=== PATIENT | female | born 1995 | race Asian ===

== ENCOUNTER 2025-08-10 09:53 | Outpatient (REF) | payer SELFPAY ==
--- NOTE | ~2025-08-10 | XR_ITS ---
EXAMINATION: XR NASAL BONES CLINICAL INFORMATION: pt w hx of deviated nasal septum and difficulty breathing COMPARISON: None available. TECHNIQUE: 3 views of the nasal bones were obtained. FINDINGS: No fracture is evident. Bony septum deviates toward the right. Paranasal sinuses are grossly clear. XR/XR nasal bones min 3V IMPRESSION: Bony nasal septum deviates toward the right. Electronically signed by: Sher King MD 08/10/2025 01:20 PM EDT RP
[2025-08-10 11:28] LABS: MANUAL DIFF FLAG NO
[2025-08-10 11:47] LABS: Hematocrit 40.9 % (37.0-47.0); Hemoglobin 13.9 g/dl (12.0-16.0); Imm Gran Abs Auto 0.02 X10*3/uL (0.00-0.03); Imm Gran Pct Auto 0.4 % (0.0-0.4); Lymphocytes Absolute Auto 2.1 X10*3/uL (1.2-4.9); Mean Corpuscular HGB Conc 34.0 g/dl (31.0-35.0); Mean Corpuscular Hemoglobin 29.4 pg (27.0-33.0); Mean Corpuscular Volume 86.5 fL (80.0-98.0); NRBC Abs Auto 0.000 X10*3/uL (0.0-0.012); NRBC Pct Auto 0.0 /100WBC (0.0-0.2); Platelet Count 277 X10*3/uL (160-400); Red Blood Count 4.73 X10*6/uL (4.20-5.50); White Blood Count 4.7 X10*3/uL (4.8-10.8)
[2025-08-10 12:35] LABS: Alanine Aminotransferase 26 U/L (0-31); Albumin Level 4.7 g/dL (3.5-5.0); Alkaline Phosphatase 42 U/L (39-117); Anion Gap 9 (12-20); Aspartate Amino Transferase 25 U/L (5-31); Blood Urea Nitrogen 11 mg/dL (9-16); Calcium 9.3 mg/dL (8.4-10.2); Carbon Dioxide 28 mmol/L (22-29); Chloride 107 mmol/L (96-108); Cholesterol 197 mg/dL (<200); Estimated Glomerular Filt Rate > 60; HDL Cholesterol 60 mg/dL (>40); Potassium 4.1 mmol/L (3.3-5.1); Sodium 140 mmol/L (135-145); Total Protein 7.4 g/dL (6.5-8.0); Triglycerides 105 mg/dL (<150)
[2025-08-10 12:41] LABS: Free T4 (Free Thyroxine) 1.05 ng/dL (0.71-1.85); Thyroid Stimulating Hormone 0.96 uIU/mL (0.32-4.0)
[2025-08-10 12:47] LABS: HBS Num1 1.28 mIU/mL (0-7.99); HBc Num1 0.26 S/CO (0.00-0.79); HBsAGNum1 0.48 S/CO (0.00-0.99); HIV Num 1 0.08 S/CO (0.00-0.99); Hepatitis B Surface Antigen Negative (Negative); Syphilis Screen Nonreactive (Nonreactive); ~HepC Num1 0.15 S/CO (0.00-0.79); ~Hepatitis B Surface Antibody NONREACTIVE (Nonreactive); ~Hepatitis C Antibody Nonreactive (Nonreactive)
[2025-08-10 13:09] LABS: CT PCR Urine NOT DETECTED (Not Detect.); NG PCR Urine NOT DETECTED (Not Detect.)
== END 2025-08-10 09:54 | disposition home or self-care (01) ==
LOC: HO.HHCL 09:53
PROVIDERS: PCP Student in an Organized Health Care Education/Training Program; Visit Provider Student in an Organized Health Care Education/Training Program
DX: Z00.00 Encounter for general adult medical examination without abnormal findings (principal); Z13.6 Encounter for screening for cardiovascular disorders; Z11.4 Encounter for screening for human immunodeficiency virus [HIV]; Z01.84 Encounter for antibody response examination; Z13.1 Encounter for screening for diabetes mellitus; M95.0 Acquired deformity of nose; R06.89 Other abnormalities of breathing
CPT/HCPCS: 70160; 80053; 80061; 82306; 83036; 84439; 84443; 85025; 86704; 86706; 86780; 86803; 87340; 87389; 87491; 87591

== ENCOUNTER → 2025-08-10 11:06 | Outpatient (BNV) | payer SELFPAY | PROVIDERS: PCP Student in an Organized Health Care Education/Training Program; Visit Provider Radiology Diagnostic Radiology | DX: J34.2 Deviated nasal septum (principal) | CPT/HCPCS: 70160 ==

== ENCOUNTER 2025-08-31 | Outpatient (REF) | payer SELFPAY ==
--- OUTSIDE RECORDS SUMMARY | 2025-08-31 09:30 | XMS_ITS | Encounter Summary ---
Author Organization [facility] Address [address] [place] [address] Care Team Providers Care Economic Forecaster Name Role Phone Stephanie Ruiz MD Primary Care Pro vider Reason for Visit * Reason Comments Procedure Encounter Details Date Type Department Care Team (Latest Contact Info) Description 08/31/2025 9:30 AM EDT Procedure Visit [facility] MEDICINE [address], [place] [id number] Selene Murry [facility] [address] [place] [address] Encounter for IUD removal (Primary Dx); Cervical cancer screening; Family planning counseling Social History Tobacco Use Types Packs/Day Years Used Date Smoking Tobacco: Never Passive Smoke Exposure: Never Smokeless Tobacco: Never Alcohol Use Standard Drinks/Week Comments Never 0 (1 standard drink = 0.6 oz pur e alcohol) Depression Answer Date Recorded Patient Health Questionnaire-9 Score 3 08/05/2025 Patient Health Questionnaire-9 Score 3 08/05/2025 Last PHQ-9: Questionnaire Data Not on file 1 Housing Stability Answer Date Recorded What is your housing situation today? I have benedicto oreilly 08/05/[address] you li ve. Do you have problems with any of the following? None of the above 08/05/2025 Food Insecurity Answer Date Recorded Within the past 12 months, y ou worried that your food would run out before you got money to buy more: Never True 08/05/2025 Within the past 12 months,th e food you bought just didn't last and you didn't have enough money to get more: Never True 01/2025 Transportation Answer Date Recorded In the past 12 months, has l ack of transportation kept you from medical appts, meetings, work or from getting things needed for daily living? No 08/05/2025 Utilities Answer Date Recorded In the past 12 months, has t he electric, gas, oil or water company threatened to shut off services in your home? No 08/05/2025 Depression Answer Date Recorded Patient Health Questionnaire-2 Score 0 08/05/2025 Internet Access Answer Date Recorded Internet Access Q1 Yes 08/05/2025 Internet Access Q2 Not on file 08/05/2025 Comments Unknown Intention Date Recorded No desire to become (finding) 1 Sex and Gender Information Value Date Recorded Sex Assigned at Female 05/05/2025 9:01 AM EDT Legal Sex Female 8:58 AM EDT Gender Identity Female 08/04/2025 2:32 PM EDT Sexual Orientation Straight 08/05/2025 10 :33 AM EDT documented as of this encounter Last Filed Vital Signs Vital Sign Reading Time Taken Comments Blood Pressure 110/58 08/31/2025 9:37 AM EDT Pulse 82 08/31/2025 9:37 AM EDT Temperature 36.6 C (97.8 F) 08/31/2025 9:37 AM EDT Respiratory Rate 16 08/31/2025 9:37 AM EDT Oxygen Saturation 98% 08/31/2025 9:37 AM EDT Inhaled Oxygen Concentration - - Weight 77.7 kg (171 lb 3.2 oz) 08/31/2025 9:37 A M EDT Height - - Body Mass Index 27.63 08/05/2025 10:13 AM EDT documented in this encounter Progress Notes * Selene Murry CNM - 08/31/2025 9:30 AM EDTAssociated Order(s): IUD Management Subjective Patient ID: Kristina Lin Carlos is a 29 y.o. female who presents for IUD removal Due for pap. Would like IUD removal. Nervous about procedure as IUD insertion was very painful. Strings were subsequently trimmed very short. 1 AMAB partner x 9y, no safety concerns. Not planning in the next year. Would like breastand pelvic exam today. Gonorrhea/Chlamydia, HIV, syphilis and Hep C neg 08/2025. Review of Systems Genitourinary: Negative for dyspareunia, dysuria, frequency, genital sores, hematuria, menstrual problem, pelvic pain, urgency, vaginal bleeding, vaginal discharge and vaginal pain. No abnormal pap, no abnormal bleeding, no breast pain, no breast mass, no nipple discharge Objective BP 110/58 (BP Location: Left arm, Patient Position: Sitting, BP Cuff Size: Adult) Pulse 82 Temp97.8 ??F (36.6 ??C) (Oral) Resp 16 Wt 171 lb 3.2 oz (77.7 kg) LMP 08/29/2025 SpO2 98% BMI27.63 kg/m?? Physical Exam Ecological Risk Assessor present: declines tick inspector. Constitutional: Appearance: Normal appearance. Chest: Breasts: Right: Normal. No swelling, bleeding, inverted nipple, mass, nipple discharge, skin change or tenderness. Left: Normal. No swelling, bleeding, inverted nipple, mass, nipple discharge, skin change or tenderness. Genitourinary: General: Normal vulva. Labia: Right: No rash, tenderness, lesion or injury. Left: No rash, tenderness, lesion or injury. Vagina: Normal. No signs of injury and foreign body. No vaginal discharge, erythema, tenderness, bleeding or lesions. Cervix: No cervical motion tenderness, discharge, friability, lesion, erythema, cervical bleeding or eversion. Uterus: Normal. Not enlarged and not tender. Adnexa: Right adnexa normal and left adnexa normal. Right: No mass, tenderness or fullness. Left: No mass, tenderness or fullness. Comments: IUD strings not seen or teased out with cytobrush Lymphadenopathy: Upper Body: Right upper body: No supraclavicular or axillary adenopathy. Left upper body: No supraclavicular or axillary adenopathy. Neurological: Mental Status: She is alert. Psychiatric: Mood and Affect: Mood normal. Behavior: Behavior normal. Assessment/Plan Diagnoses and all orders for this visit: Encounter for IUD removal See procedure note. IUD Management Performed by: Selene Murry CNM Authorized by: Selene Rizzardini, CNM Procedure: IUD removal Consent obtained by patient, parent, or legal power of disability attorney - including discussion of procedurerisks and benefits, patient questions answered, and patient education provided: yes Reason for removal: patient request Strings visualized: no Cervix cleaned with: iodopovidone Tenaculum applied to cervix: no Cervix manually dilated: no IUD grasped by forceps: yes Performed with ultrasound guidance: no IUD removed: yes Date/Time of Removal: 08/31/2025 9:55 AM Removed without complications: yes IUD intact: yes Removal comments: 2 passes with alligator forceps after betadine prep Cervical cancer screening - Pap Smear Cotest today, repeat 5 y if normal/HPV negative. Will contact with results. Family planning counseling Not interested in new IUD. Would like to try NuvaRing. No contraindications. Insert today. Reviewed insertion and removal tips. Let me know if any problems. Backup x 7 days as precaution, although she is within 5 days of LMP. ACHES reviewed. Ring check 3 months. May call any time if questions or concerns. Other orders - etonogestrel-ethinyl estradiol (Nuvaring) 0.12-0.015 MG/24HR vaginal ring; Insert 1 Ring. into the vagina See administration instructions. 1 every 3 weeks as directed then remove for 1 week documented in this encounter Plan of Treatment Upcoming Encounters Date Type Department Care Team ([facility] st Contact Info) Description 10/17/2025 9:[address] [facility] DIABETES/NUTRITION [address] [place] [address] Deysi Morin, HARVE[place] [address] [place] [address] Scheduled Orders Name Type Priority Associated Diagnoses Orde r Schedule Pap Smear Pathology and Cytology Routine Cervical cancer screening Ordered: 08/31/2025 documented as of this encounter Procedures Procedure Name Priority Date/Time Associated Diagnosis Comments OK REMOVAL INTRAUTERINE DEVICE IUD Routine 08/31/2025 9:30 AM EDT Encounter for IUD removal documented in this encounter Results * OK REMOVAL INTRAUTERINE DEVICE IUD (08/31/2025 9:30 AM EDT) Narrative Selene Murry CNM - 08/31/2025 9:30 AM EDT Selene Murry CNM 08/31/2025 10:15 AM IUD Management Performed by: Selene Murry CNM Authorized by: Selene Muryr CNM Procedure: IUD removal Consent obtained by patient, parent, or legal power of disability attorney - including discussion of procedure risks and benefits, patient questions answered, and patient education provided: yes Reason for removal: patient request Strings visualized: no Cervix cleaned with: iodopovidone Tenaculum applied to cervix: no Cervix manually dilated: no IUD grasped by forceps: yes Performed with ultrasound guidance: no IUD removed: yes Date/Time of Removal: 08/31/2025 9:55 AM Removed without complications: yes IUD intact: yes Removal comments: 2 passes with alligator forceps after betadine prep us Selene Murry CNM IN CLINIC/BEDSIDE ORDERAB LES Final Result documented in this encounter Visit Diagnoses Diagnosis Encounter for IUD removal- Primary Cervical cancer screening Screening for malignant neoplasm of the cervix Family planning counseling Other general counseling and advice for contraceptive management documented in this encounter Additional Health Concerns Assessment Noted Time PHQ-9 Depression Total Score: 3 08/05/20 25 12:37 PM EDT documented as of this encounter Care Teams Economic Forecaster Relationship Specialty Start Date End Date Stephanie Ruiz MD [address] [place] [id number] PCP - General Internal Medicine 08/05/25 documented as of this encounter
--- OUTSIDE RECORDS SUMMARY | 2025-09-01 10:05 | XMS_ITS | Clinical Summary ---
Author Organization [employer] Address [address] [place] [address] Care Team Providers Care Flat Examiner Name Role Phone Stephanie Ruiz MD Primary Care Pro vider Allergies Active Allergy Reactions Criticality Noted Date Comments Apcpfantnenwk-Xm-Ub-Apap 08/05/2025 Rashes Lamotrigine Rash Low 02/19/2023 Michael Tip syndrome happened in 2020 Medications cetirizine (ZyrTEC) 10 MG chewable tablet Chew Once per day. Active albuterol 108 (90 Base) MCG/ACT inhaler Inhale 1 puff every 4 (four) hours if needed for wheezing. 18 g 1 025 Active cholecalciferol (Vitamin D-3) 25 MCG (1000 UT) tablet Take 1 tablet (25 mcg) by mouth Once per day. 90 tablet 1 025 2025 Active etonogestrel-et hinyl estradiol (Nuvaring) 0.12-0.015 MG/24HR vaginal ring Insert 1 Ring. into the vagina See administration instructions. 1 every 3 weeks as directed then remove for 1 week 1 Ring. 11 025 2025 Active albuterol 108 (90 Base) MCG/ACT inhaler Inhale 1 puff every 4 (four) hours if needed. 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 Overview (08/07/2025): Per pt diagnosed after Lamotrigine Anxiety 08/07/2025 Deviated septum 08/07/2025 Resolved Problems Problem Noted Date Diagnosed Date Resolved Date Graves disease 07/06/2018 08/05/2025 Encounters Date Type Department Care Team Description 08/31/2025 9:30 AM EDT Procedure Visit [facility] [place] [address] Selene Murry CNM Encounter for IUD removal (Primary Dx); Cervical cancer screening; Family planning counseling 08/31/2025 Travel 08/30/2025 Travel 08/10/2025 Orders [place] [address] [place] [address] Stephanie Ruiz MD Deviated nasal septum (Primary Dx) 08/10/2025 Results Follow-Up [address] [place] [address] Stephanie Ruiz MD Chlamydia/Trichomonas /Neisseria gonorrhoeae, PCR, Urine, CBC auto differential, Comprehensive Metabolic Panel, Additional followed-up results: 12 08/10/2025 Orders Only [address] [place] [address] Stephanie Ruiz MD 08/10/2025 Travel 08/05/2025 10:15 AM EDT Office Visit [address] [place] [address] Stephanie Ruiz MD Overweight (BMI 25.0-29.9) (Primary Dx); Dietary counseling; Exercise counseling; Nasal deviation; Annual physical exam; Enlarged thyroid; History of Graves' disease; Health care maintenance; History of Pineda-Tip toxic epidermal necrolysis overlap syndrome; Anxiety; Deviated septum 08/05/2025 Travel 08/04/2025 Telephone [facility]IC[facility] [address] [place] [address] Stephanie Ruiz MD chart prep 07/29/2025 Patient Outreach [facility] PEDS [address] [place] [address] Stephanie Ruiz MD Pre-visit Planning (SDOH unable to reach LVM ) 06/02/2025 Telephone [facility] MEDICINE [address] [place] [address] Ton Jones MD from Last 3 Months Family History Medical History Relation Name Comments pancreatic ca-80s Maternal Grandfather DM2 Maternal Grandmother Relation Name Status Comments Maternal Grandfather Maternal Grandmother Social History Tobacco Use Types Packs/Day Years Used Date Smoking Tobacco: Never Passive Smoke Exposure: Never Smokeless Tobacco: Never Tobacco Cessation:Counseling Given: Not Answered Alcohol Use Standard Drinks/Week Comments Never 0 (1 standard drink = 0.6 oz pur e alcohol) Depression Answer Date Recorded Patient Health Questionnaire-9 Score 3 08/05/2025 Patient Health Questionnaire-9 Score 3 08/05/2025 Last PHQ-9: Questionnaire Data Not on file 1 Housing Stability Answer Date Recorded What is your housing situation today? I have benedictobeatriz oreilly 08/05/[address] you [...] Orientation Straight 08/05/2025 10 :33 AM EDT Last Filed Vital Signs Vital Sign Reading [...] oz) 08/31/2025 9:37 A M EDT Height 167.6 cm (5' 6 ) 08/05/2025 10:13 AM EDT Body Mass Index 27.63 08/05/2025 10:13 AM EDT Plan of Treatment Upcoming Encounters Date Type Department Care Team (Late st Contact Info) Description 10/17/2025 9:00 AM EST Nutrition [facility] DIABETES/NUTRITION [address] [place] [address] Deysi Morin, RD [address] [place] [address] Health Maintenance Due Date Last Done Comments HPV Vaccines (1 - 3-dose series) 2008 DTaP/Tdap/Td Vaccines (1 - Tdap) 2012 Hepatitis B Vaccines (1 of 3 - 19+ 3-dose series) 2012 Pap Smear 2014 Cervical Cancer Screening 2023 HPV/Cotest 2023 COVID-19 Vaccine (1 - 2023-2 5 season) 2025 Influenza Vaccine (#1) 2025 Alcohol/Substance Use Screening 08/05/2026 08/05/2025 Depression Screening 08/05/2026 08/05/2025, 08/05/2025 SDOH Screening 08/05/2026 08/05/2025 Tobacco Screening 08/05/2026 08/05/2025 Disability Screening 08/30/2026 08/30/2025 Family Planning (PISQ) 08/31/2026 08/31/2025 Zoster Vaccines (1 of 2) 2043 RSV Patients and Patients Aged 60 years or older (1 - 1-dose 75+ series) 2068 HIV Screening Completed 08/10/2025 Hepatitis C Screening Completed 08/10/2025 HIB Vaccines Aged Out No longer eligi ble based on patient's age to complete this topic Hepatitis A Vaccines Aged Out No long er eligible based on patient's age to complete this topic IPV Vaccines Aged Out No longer eligi ble based on patient's age to complete this topic Meningococcal B Vaccine Aged Out No l onger eligible based on patient's age to complete this topic Meningococcal Vaccine Aged Out No geri doreen eligible based on patient's age to complete this topic Pneumococcal Vaccine: Pediatrics (0 to 5 Years) and At-Risk Patients (6 to 49) Years Aged Out No longer eligible b ased on patient's age to complete this topic RSV under 20 months Aged Out No longe r eligible based on patient's age to complete this topic Rotavirus Vaccines Aged Out No longer eligible based on patient's age to complete this topic Procedures Procedure Name Priority Date/Time Associated Diagnosis Comments [place] REMOVAL INTRAUTERINE DEVICE IUD Routine 08/31/2025 9:30 AM EDT Encounter for IUD removal XR NASAL BONES Routine 08/10/2025 1:05 PM EDT Nasal deviation VITAMIN D,25-OH,TOTAL,IA Routine 08/10/2025 10:40 AM EDT Annual physical exam TSH Routine 08/10/2025 10:40 AM EDT Annual physical exam T4, FREE Routine 08/10/2025 10:40 AM EDT Annual physical exam SYPHILIS SCREEN Routine 08/10/2025 10:40 AM EDT Annual physical exam LIPID PANEL, STANDARD Routine 08/10/2025 10:40 AM EDT Annual physical exam HIV 1/2 ANTIGEN/ANTIBODY, FOURTH GENERATION W/RFL Routine 08/10/2025 10:40 AM EDT Annual physical exam HEPATITIS C AB W/REFL TO HCV RNA, QN, PCR Routine 08/10/2025 10:40 AM EDT Annual physical exam HEPATITIS B SURFACE ANTIGEN, EIA Routine 08/10/2025 10:40 AM EDT Annual physical exam HEPATITIS B SURFACE ANTIBODY, QUALITATIVE Routine 08/10/2025 10:40 AM EDT Annual physical exam HEPATITIS B CORE AB TOTAL Routine 08/10/2025 10:40 AM EDT Annual physical exam HEMOGLOBIN A1C Routine 08/10/2025 10:40 AM EDT Annual physical exam COMPREHENSIVE METABOLIC PANEL Routine 08/10/2025 10:40 AM EDT Annual physical exam CBC WITH AUTO DIFFERENTIAL Routine 08/10/2025 10:40 AM EDT Annual physical exam CHLAMYDIA/TRICHOMONAS/ NEISSERIA GONORRHOEAE, PCR, URINE Routine 08/10/2025 10:40 AM EDT Annual physical exam from Last 3 Months Results * [place] REMOVAL INTRAUTERINE DEVICE IUD (08/31/2025 9:30 AM EDT) Selene Sousa CNM - 08/31/2025 9:30 AM EDT Selene Murry CNM 08/31/2025 10:15 AM IUD Management Performed by: Selene Murry CNM Authorized by: Selene Murry CNM Procedure: IUD removal Consent obtained by patient, parent, or legal power of workers compensation attorney - including discussion of procedure risks [...] forceps after betadine prep us Selene Murry MIGUEL ANGELM IN CLINIC/BEDSIDE ORDERAB LES Final Result * XR Nasal Bones (08/10/2025 1:05 PM EDT) Anatomical Region Laterality Modality Head, Neck Radiographic [place] ging 08/10/2025 1:05 PM EDT Narrative 08/10/2025 1:22 PM EDT [address] [address] XRay Report Signed Patient: Kristina Gonzalez MR#: [id number] : 1995 Acct:[id number] Age/Sex: 29 / F ADM Date: 08/10/25 Loc: [facility] Attending Dr: Stephanie Tony MD Ordering Physician: Stephanie Ruiz MD Date of Service: 08/10/25 Procedure(s): XR nasal bones min 3V Accession Number(s): [id number] cc: Stephanie Ruiz MD Reason for Exam: pt w hx of deviated nasal septum and difficulty breathing EXAMINATION: XR NASAL BONES CLINICAL INFORMATION: pt w hx of deviated nasal septum and difficulty breathing COMPARISON: None available. TECHNIQUE: 3 views of the nasal bones were obtained. FINDINGS: No fracture is evident. Bony septum deviates toward the right. Paranasal sinuses are grossly clear. XR/XR nasal bones min 3V IMPRESSION: Bony nasal septum deviates toward the right. Electronically signed by: Sher King MD 08/10/2025 01:20 PM EDT Dictated By: Sher King MD Signed By: <Electronically signed by Sher King MD in OV> 08/10/25 1320 DD/ 1305 TD/TT: 08/10/25 1308 Supervisor Tumbling And Rolling: Procedure Note Donotuseinterpreter, Image - 08/10/[address] [address] XRay Report Signed Patient: Kristina Gonzalez MR#: [id number] : 1995Acct:[id number] Age/Sex: 29 / FADM Date: 08/10/25 Loc: [facility] Attending Dr: Stephanie Tony MD Ordering Physician: Stephanie Ruiz MD Date of Service: 08/10/25 Procedure(s): XR nasal bones min 3V Accession Number(s): [id number] cc: Stephanie Ruiz MD Reason for Exam: pt w hx of deviated nasal septum and difficultybreathing EXAMINATION: XR NASAL BONES CLINICAL INFORMATION: pt w hx of deviated nasal septum and difficulty breathing COMPARISON: None available. TECHNIQUE: 3 views of the nasal bones were obtained. FINDINGS: No fracture is evident. Bony septum deviates toward the right. Paranasal sinuses are grossly clear. XR/XR nasal bones min 3V IMPRESSION: Bony nasal septum deviates toward the right. Electronically signed by: Sher King MD 08/10/2025 01:20 PM EDT Dictated By: Sher King MD Signed By: <Electronically signed by Sher King MD in OV> 08/10/25 1320 DD/ 1305 TD/TT: 08/10/25 1308 Supervisor Tumbling And Rolling: us Stephanie Tony MD IMG XR PROCEDURES Final Result * Chlamydia/Trichomonas/Neisseria gonorrhoeae, PCR, Urine (08/10/2025 10:40 AM EDT) CT PCR, Urine NOT DETECTED Not Detect. [facility] Comment:A not detected test result does not exclude the possibilityof infection because test results can be affected byimproper specimen collection, concurrent antibiotic therapy,or the number of organisms in the specimen which may bebelow the sensitivity of the test. As with many diagnostictests, results from the Xpert CT/NG assay should beinterpreted in conjunction with other laboratory andclinical data available to the clinician.The Xpert CT/NG assay should not be used for the evaluationof suspected sexual abuse or for other medico-legalindications. Additional testing is recommended in anycircumstance when false positive or false negative resultscould lead to adverse medical, social or psychologicalconsequences. NG PCR, Urine NOT DETECTED Not Detect. [facility] Comment:A not detected test result does not exclude the possibilityof infection because test results can be affected byimproper specimen collection, concurrent antibiotic therapy,or the number of organisms in the specimen which may bebelow the sensitivity of the test. As with many diagnostictests, results from the Xpert CT/NG assay should beinterpreted in conjunction with other laboratory andclinical data available to the clinician.The Xpert CT/NG assay should not be used for the evaluationof suspected sexual abuse or for other medico-legalindications. Additional testing is recommended in anycircumstance when false positive or false negative resultscould lead to adverse medical, social or psychologicalconsequences. Urine (Urine, Random) 08/10/2025 10:40 AM EDT 08/10/2025 11:21 AM EDT us Stephanie Tony MD LAB URINE ORDERAB LES Final Result Performing Organization Address [facility]/ZIP Co de Phone Number [facility] [address] [place] [phone] * Syphilis Screen (08/10/2025 10:40 AM EDT) Syphilis Screen Nonreactive Nonreactive [facility] Blood 08/10/2025 10:4 0 AM EDT 08/10/2025 11:24 AM EDT Stephanie Tony MD LAB BLOOD ORDERAB LES Final Result Performing Organization Address [facility]/ZIP Co de Phone Number [facility] [address] [place] [phone] * (ABNORMAL) Vitamin D, 25-Hydroxy, Total, Immunoassay (08/10/2025 10:40 AM EDT) Vitamin D 25-OH Total 24.1(L) >30 ng/mL [facility] Comment: Health Based Reference Values*< 20 ng/mL Cizemjlkp12-58 ng/mL Insufficient> 30 ng/mL Sufficient*Gerry LANDRY. N Engl J Med. 2007;357:266-280There is no well-established upper level of normal vitamin Dlevels. Some laboratories use 50 ng/mL as an upper limit ofnormal. However, toxicity is patient-dependent and may occurat any level. Careful correlation with the patient'spresentation is necessary and, if there is concern forvitamin D toxicity, treatment should be consideredirrespective of the serum level.Care must be taken in interpreting Vitamin D results fromdifferent laboratories and methodologies. Published datademonstrated that results from patients undergoinghemodialysis may show a negative bias when tested withvarious automated 25-OH vitamin D assays when compared toLC-MS/MS.When testing samples from patients whose predominant form ofVitamin D is Vitamin D2, such as patients receiving VitaminD2 supplementation, results that are subtherapeutic shouldbe confirmed with another method such as LC-MS/MS. Blood Venous blood specimen / Unknown 08/10/2025 10:40 AM EDT 08/10/2025 11:24 AM EDT us Stephanie Tony MD LAB BLOOD ORDERAB LES Final Result [facility] [address] [place] [phone] * (ABNORMAL) CBC auto differential (08/10/2025 10:40 AM EDT) White Blood Count 4.7(L) 4.8 - 10.8 X10*3/uL [facility] Red Blood Count 4.73 4.20 - 5.50 X10*6/uL [facility] Hemoglobin 13.9 12.0 - 16.0 g/dl [facility] Hematocrit 40.9 37.0 - 47.0 % [facility] Mean Corpuscular Volume 86.5 80.0 - 98.0 fL [facility] Mean Corpuscular Hemoglobin 29.4 27.0 - 33.0 pg [facility] Mean Corpuscular HGB Conc 34.0 31.0 - 35.0 g/dl [facility] Red Cell Distribution Width 12.4 11.0 - 16.0 % [facility] Platelet Count 277 160 - 400 X10*3/uL [facility] Mean Platelet Volume 9.2(L) 9.4 - 12.3 fL [facility] Neutrophils Percent Auto 42.4(L) 45 - 73 % [facility] Imm Gran Pct Auto 0.4 0.0 - 0.4 % [facility] Lymphocytes Percent Auto 44.7(H) 20 - 40 % [facility] Monocytes Percent Auto 8.6 2 - 11 % [facility] Eosinophils Percent Auto 2.8 0 - 4 % [facility] Basophils Percent Auto 1.1 0 - 2 % [facility] NRBC Pct Auto 0.0 0.0 - 0.2 /100WBC [facility] Neutrophils Absolute Auto 2.0 2.0 - 8.3 x10*3/uL [facility] Imm Gran Abs Auto 0.02 0.00 - 0.03 X10*3/uL [facility] Lymphocytes Absolute Auto 2.1 1.2 - 4.9 X10*3/uL [facility] Monocytes Absolute Auto 0.4 0.1 - 1.2 X10*3/uL [facility] Eosinophils Absolute Auto 0.1 0.0 - 0.4 X10*3/uL [facility] Basophils Absolute Auto 0.1 0.0 - 0.2 X10*3/uL [facility] NRBC Abs Auto 0.000 0.0 - 0.012 X10*3/uL [facility] Blood Venous blood specimen / Unknown 08/10/2025 10:40 AM EDT 08/10/2025 11:24 AM EDT us Stephanie Tony MD LAB BLOOD ORDERAB LES Final Result [facility] [address] [place] [phone] * Hepatitis C Antibody with Reflex to HCV, RNA, Quantitative, Real-Time PCR (08/10/2025 10:40 AM EDT) Hepatitis C Antibody Nonreactive Nonreactive [facility] Comment:Antibodies to HCV no t detected; does not exclude early acuteHCV infection. Blood Venous blood specimen / Unknown 08/10/2025 10:40 AM EDT 08/10/2025 11:24 AM EDT us Stephanie Tony MD LAB BLOOD ORDERAB LES Final Result Performing Organization Address City/[facility]/ZIP Co de Phone Number [facility] [address] [place] [phone] * Hepatitis B surface antigen, EIA (08/10/2025 10:40 AM EDT) Hepatitis B Surface Ag Negative Negative [facility] Blood Venous blood specimen / Unknown 08/10/2025 10:40 AM EDT 08/10/2025 11:24 AM EDT us Stephanie Tony MD LAB BLOOD ORDERAB LES Final Result Performing Organization Address City/[facility]/ZIP Co de Phone Number [facility] [address] [place] [phone] * Hepatitis B Core Antibody, Total (08/10/2025 10:40 AM EDT) Hepatitis B Core Antibody Nonreactive Nonreactive [facility] Blood Venous blood specimen / Unknown 08/10/2025 10:40 AM EDT 08/10/2025 11:24 AM EDT Stephanie Tony MD LAB BLOOD ORDERAB LES Final Result Performing Organization Address City/[facility]/ZIP Co de Phone Number [facility] [address] [place] [phone] * HIV-1/2 Antigen and Antibodies, Fourth Generation, with Reflexes (08/10/2025 10:40 AM EDT) HIV AB/AG Nonreactive Nonreactive [facility] Comment:HIV-1 p24 Ag and/or HIV-1/HIV-2 Ab not detected.A test result that is nonreactive does not exclude thepossibility of exposure to or infection with HIV-1 and/orHIV-2. Nonreactive results in this assay for individualswith prior exposure to HIV-1 and/or HIV-2 may be due toantigen and antibody levels that are below the limit ofdetection of this assay.[employer] HIV Ag/Ab Combo assay result andsupplemental assay results should be interpreted inconjunction with the patient's clinical presentation,history and other laboratory results. If the results areinconsistent with clinical evidence, additional testing issuggested to confirm the result. Blood Venous blood specimen / Unknown 08/10/2025 10:40 AM EDT 08/10/2025 11:24 AM EDT us Stephanie Tony MD LAB BLOOD ORDERAB LES Final Result Performing Organization Address City/[facility]/ZIP Co de Phone Number [facility] [address] [place] [phone] * Hepatitis B Surface Antibody, Qualitative (08/10/2025 10:40 AM EDT) ~Hepatitis B Surface Antibody NONREACTIVE Nonreactive [facility] Comment:Nonreactive: < 8.00 mIU/mL Blood Venous blood specimen / Unknown 08/10/2025 10:40 AM EDT 08/10/2025 11:24 AM EDT Stephanie Tony MD LAB BLOOD ORDERAB LES Final Result Performing Organization Address [facility] Phone [facility] [address] [place] [phone] * TSH (08/10/2025 10:40 AM EDT) Pathologist [facility] Thyroid Stimulating Hormone 0.96 0.32 - 4.0 uIU/mL [facility] Comment:TSH 3rd Generation ( [facility]) Blood Venous blood specimen / Unknown 08/10/2025 10:40 AM EDT 08/10/2025 11:24 AM EDT Stephanie Tony MD LAB BLOOD ORDERAB LES Final Result Performing Organization Address [facility] Phone Number [facility] [address] [place] [phone] * T4, Free (08/10/2025 10:40 AM EDT) [facility] Free T4 (Free Thyroxine) 1.05 0.71 - 1.85 ng/dL [facility] Blood Venous blood specimen / Unknown 08/10/2025 10:40 AM EDT 08/10/2025 11:24 AM EDT Stephanie Tony MD LAB BLOOD ORDERAB LES Final Result Performing Organization Address [facility] Co de Phone Number [facility] [address] [place] [phone] * Hemoglobin A1c (08/10/2025 10:40 AM EDT) Pathologist [facility] Hemoglobin A1c 5.3 <6.0 % [facility] Comment:Hemoglobin A1C Refer ence Range Adults: 4.8 - 6.0 % Non diabetic: < 6.0 % Goal: < 7.0 %Additional Action Suggested: > 8.0 %Note: Hemoglobin A1c results are invalid for patients with abnormal amounts of HbF. Blood transfusions may impact the HbA1c concentration in the patient sample. Estimated Average Glucose 105 mg/dL [facility] Comment:eAG = Estimated ave rage glucose which is %A1C expressed asaverage glucose, using the formula of the [id number] Glucose study (ADAG), Diabetes Care, Vol.31,#8,Jun. 2007 Blood Venous blood specimen / Unknown 08/10/2025 10:40 AM EDT 08/10/2025 11:24 AM EDT us Stephanie Tony MD LAB BLOOD ORDERAB LES Final Result [facility] [address] [place] [phone] * (ABNORMAL) Lipid Panel, Standard (08/10/2025 10:40 AM EDT) Triglycerides 105 <150 mg/dL [facility] Comment:Desirable Triglyceri de: less than 150 mg/dLBorderline High Triglyceride 150-199 mg/dLHigh Triglyceride: 200-499 mg/dLVery High Triglyceride: greater than or equal to 5OO mg/dL Cholesterol 197 <200 mg/dL [facility] Comment:Desirable Cholestero l: less than 200 mg/dLBorderline High Cholesterol: 200-239 mg/dLHigh Cholesterol: greater than 239 mg/dL LDL Cholesterol Calculated 116(H) <100 mg/dL [facility] Comment:Desirable LDL: less than 100 mg/dLNear Optimal/Above Optimal LDL: 110- 129 mg/dLBorderline High LDL: 130-159 mg/dLHigh LDL: 160-189 mg/dLVery High LDL: greater than or equal to 190 mg/dL HDL Cholesterol 60 >40 mg/dL [facility] Comment:Desirable HDL: great er than 40 mg/dL Note: This HDL assay may give artificially low results in patients with liver disease. Blood Venous blood specimen / Unknown 08/10/2025 10:40 AM EDT 08/10/2025 11:24 AM EDT us Stephanie Tony MD LAB BLOOD ORDERAB LES Final Result [facility] [address] [place] [phone] * (ABNORMAL) Comprehensive Metabolic Panel (08/10/2025 10:40 AM EDT) Sodium 140 135 - 145 mmol/L [facility] Potassium 4.1 3.3 - 5.1 mmol/L [facility] Chloride 107 96 - 108 mmol/L [facility] Carbon Dioxide 28 22 - 29 mmol/L [facility] Anion Gap 9(L) 12 - 20 [facility] Urea Nitrogen (BUN) 11 9 - 16 mg/dL [facility] Creatinine, Serum 0.67 0.5 - 1.4 mg/dL [facility] Estimated Glomerular Filt Rate >60 [facility] Comment:Chronic Kidney Disea se: Estimated GFR < 60 mL/min/1.22w8Hrolup Kidney Disease: Estimated GFR < 15 mL/min/1.73m2 Glucose 91 60 - 115 mg/dL [facility] Calcium 9.3 8.4 - 10.2 mg/dL [facility] Bilirubin, Total 0.7 0.0 - 1.0 mg/dL [facility] Aspartate Amino Transferase 25 5 - 31 U/L [facility] Alanine Aminotransferase 26 0 - 31 U/L [facility] Total Protein 7.4 6.5 - 8.0 g/dL [facility] Albumin Level 4.7 3.5 - 5.0 g/dL [facility] Alkaline Phosphatase 42 39 - 117 U/L [facility] Blood Venous blood specimen / Unknown 08/10/2025 10:40 AM EDT 08/10/2025 11:24 AM EDT us Stephanie Tony MD LAB BLOOD ORDERAB LES Final Result [facility] [address] [place] [phone] [phone] from Last 3 Months Insurance [facility] 2 Care Teams Flat Examiner Relationship Specialty Start Date End Date Stephanie Ruiz MD [address] [place] [id number] PCP - General Internal Medicine 08/05/25
--- OUTSIDE RECORDS SUMMARY | 2025-09-01 10:05 | XMS_ITS | Encounter Summary ---
Author Organization [email or web address] Address [address] [facility] [address] [place] [address] Care Team Providers Care Fieldwork Coordinator Name Role Phone Stephanie Ruiz MD Primary Care Pro vider Encounter Details Date Type Department Care Team (Latest Contact Info) Description 08/31/2025 Travel Social History Tobacco Use Types Packs/Day Years [...] Q2 Not on file 08/05/2025 Comments Unknown Sex and Gender Information Value Date Recorded Sex Assigned at Female 05/05/2025 9:01 AM EDT Legal Sex Female 8:58 AM EDT Gender Identity Female 08/04/2025 2:32 PM EDT Sexual Orientation Straight 08/05/2025 10 :33 AM EDT documented as of this encounter Plan of Treatment Upcoming Encounters Date Type Department Care Team (Late st Contact Info) Description 10/17/2025 9:00 AM EST Nutrition [facility] DIABETES/NUTRITION [address] [place], [place] [phone] Deysi Mor[address] [place], [place] [phone] documented as of this encounter Visit Diagnoses Not on filedocumented in this encounter Additional Health Concerns Assessment Noted Time PHQ-9 Depression Total Score: 3 08/05/20 12:37 PM EDT documented as of this encounter Care Teams Fieldwork Coordinator Relationship Specialty Start Date End Date Stephanie Ruiz MD [address] [place], [place] [phone] PCP - General Internal Medicine 08/05/25 documented as of this encounter
--- OUTSIDE RECORDS SUMMARY | 2025-09-01 10:05 | XMS_ITS | Encounter Summary ---
Author Organization [employer] Address [address] [facility] [address] [place] [address] Care Team Providers Care Valve Fitter Name Role Phone Stephanie Ruiz MD Primary Care Pro vider Encounter Details Date Type Department Care Team (Latest Contact Info) Description 08/30/2025 Travel Social History Tobacco Use Types Packs/Day [...] Info) Description 10/17/2025 9:00 AM EST Nutrition [facility] DIABETES/NUTRITION [address] [place], [place] [phone] Deysi [address] [place], [place] [phone] documented as of this encounter Visit Diagnoses Not on filedocumented in this encounter Additional Health Concerns Assessment Noted Time PHQ-9 Depression Total Score: 3 08/05/20 12:37 PM EDT documented as of this encounter Care Teams Valve Fitter Relationship Specialty Start Date End Date Stephanie Ruiz MD [address] [place], [place] [phone] PCP - General Internal Medicine 08/05/25 documented as of this encounter
--- OUTSIDE RECORDS SUMMARY | 2025-09-01 10:06 | XMS_ITS | Encounter Summary ---
Author Organization [facility] [employer] Address [address] [facility] [address] [place] [address] Care Team Providers Care Horticulture Worker Name Role Phone Stephanie Ruiz MD Primary Care Pro vider Reason for Visit * Reason Onset Date Comments Results 08/10/2025 Encounter Details Date Type Department Care Team (Latest Contact Info) Description 08/10/2025 Results Follow-Up [facility] MEDICINE [address] [place] [phone] Stephanie Ruiz MD [address] [place] [address] Chlamydia/Trichomonas/ Neisseria gonorrhoeae, PCR, Urine, CBC auto differential, Comprehensive Metabolic Panel, Additional followed-up results: 12 Social History Tobacco Use Types Packs/Day Years [...] AM EDT documented as of this encounter Miscellaneous Notes * Telephone Encounter - Yaima Pompa RN - 08/10/2025 2:10 PM EDT Telephone call placed to pt regarding below results and POC. Informed XR showed deviated septum to the right. Inquired if trouble breathing. Pt states that it does bother her. She is agreeable to ENTreferral. Informed referral will be placed. They are booking far out and informed of process where we cannot book appointment for her so she should get letting in the mail on how to book her appointment. Pt agreeable. Also informed blood work showed slightly elevated cholesterol. Advised cut down on fried, fatty, processed, and sugary foods. Increased intake of fruits, vegetables, and whole grains. Substitute tablespoon of oil instead of butter while cooking. Bake meat instead of frying. Increase physical activity as able. Ideally exercise 30min/day 5 days/week, try to take stairs instead of elevator, take the long way, etc. Reminded of upcoming appointment with furniture upholstery mechanic 10/17/25. Informed vitamin D low, supplement sent to her pharmacy to be taken daily. Informed not immune to Hep B. Explained what it is and why we recommend vaccination. Pt not interested at this time in scheduling.Pt inquired about thyroid. Informed thyroid levels came back WNL. Pt inquired about next visit withPCP. Informed on recall. Should be getting a call to schedule next visit next month. Pt verbalized understanding and denied having any further questions or concerns at this time. * Telephone Encounter - Yaima Pompa RN - 08/10/2025 2:05 PM EDT ----- Message from Stephanie Tony MD sent at 08/10/2025 1:48 PM EDT ----- Please inform pt nasal bone XR is showing Bony nasal septum deviates toward the right. Check w pt is she is having issues w breathing due to deviation I can refer to ENT if pt interested Let me know Please inform pt that from blood lab results all are normal Only slight elevated cholesterol ,advised lowe fat diet , pt to start care w furniture upholstery mechanic Also mild low vit D , I sent vit D daily to her pharmacy She is not immune for hep B -so if pt is interested help pt to start vaccine series Thanks Thanks ----- Message ----- From: Interface, Ris Results In Sent: 08/10/2025 1:23 PM EDT To: Stephanie Tony MD * Result Encounter Note - Stephanie Tony MD - 08/10/2025 1:48 PM EDT Please inform pt nasal bone XR is showing Bony nasal septum deviates toward the right. Check w pt is she is having issues w breathing due to deviation I can refer to ENT if pt interested Let me know Thanks * Result Encounter Note - Stephanie Tony MD - 08/10/2025 1:40 PM EDT Please inform pt that from blood lab results all are normal Only slight elevated cholesterol ,advised lowe fat diet , pt to start care w furniture upholstery mechanic Also mild low vit D , I sent vit D daily to her pharmacy She is not immune for hep B -so if pt is interested help pt to start vaccine series Thanks documented in this encounter Plan of Treatment Upcoming Encounters Date Type Department Care Team (Late st Contact Info) Description 10/17/2025 9:00 AM EST Nutrition [facility] DIABETES/NUTRITION [address] [place], [place] [phone] Deysi Morin, RD [address] [place], [place] [phone] documented as of this encounter Visit Diagnoses Not on filedocumented in this encounter Additional Health Concerns Assessment Noted Time PHQ-9 Depression Total Score: 3 08/05/20 12:37 PM EDT documented as of this encounter Care Teams Horticulture Worker Relationship Specialty Start Date End Date Stephanie Ruiz MD [address] [place], [place] [phone] PCP - General Internal Medicine 08/05/25 documented as of this encounter
== END 2025-08-31 00:01 | disposition home or self-care (01) ==
LOC: HO.HHCLNP
PROVIDERS: Visit Provider Advanced Practice Midwife
DX: Z12.4 Encounter for screening for malignant neoplasm of cervix (principal); Z11.51 Encounter for screening for human papillomavirus (HPV)
CPT/HCPCS: 87626; 88175